=== PATIENT | male | born 1965 | race Caucasian/White ===

== ENCOUNTER 2019-10-20 07:21 | Emergency (ER) | payer OTHER ==
[~2019-10-20] VITALS: Ht 167.6 cm; Wt 68.0 kg
[2019-10-20 07:33] VITALS: Ht 167.6 cm; Wt 68.0 kg
[2019-10-20 08:59] VITALS: BP 164/89
== END 2019-10-20 08:59 | disposition home or self-care (01) ==
LOC: ED 07:21
DX: S00.01XA Abrasion of scalp, initial encounter (principal); V48.5XXA Car driver injured in noncollision transport accident in traffic accident, initial encounter; Y93.I9 Activity, other involving external motion; Y92.488 Other paved roadways as the place of occurrence of the external cause; Y99.8 Other external cause status